=== PATIENT | female | born 1990 | race Hispanic/Latino ===

== ENCOUNTER 2016-07-23 17:48 | Emergency (ER) | payer SELFPAY ==
[2016-07-23] MEDS ORDERED: Ibuprofen 800 MG TAB ONE (18:30)
== END 2016-07-23 18:45 | disposition home or self-care (01) ==
LOC: NAV ERS 17:48
DX: M54.5 Low back pain (principal)
CPT/HCPCS: 99283

== ENCOUNTER 2016-11-30 17:39 | Emergency (ER) | payer SELFPAY | END 2016-11-30 18:03 | disposition home or self-care (01) | LOC: NAV ERS 17:39 | DX: J45.20 Mild intermittent asthma, uncomplicated (principal) | CPT/HCPCS: 99284 ==

== ENCOUNTER 2016-12-24 14:54 | Outpatient (CLI) | payer OTHER ==
[2016-12-15 09:32] LABS: BHCG - Serum POSITIVE (NEGATIVE); Pregs Control Bar Appear? YES (CONTROL BAR)
== END 2016-12-24 14:55 | disposition home or self-care (01) ==
LOC: NAV LAB 14:54 → EDSTATUS 14:55 → NAV LAB 14:55
DX: Z00.00 Encounter for general adult medical examination without abnormal findings (principal)
CPT/HCPCS: 36415; 84703

== ENCOUNTER 2016-12-27 15:44 | Emergency (ER) | payer SELFPAY ==
[2016-12-27 17:33] LABS: #Basophils 0.1 thou/uL (0.0-0.2); #Eosinphils 0.3 thou/uL (0.0-0.7); #Lymphocytes 3.5 thou/uL (1.20-3.40); #Monocytes 0.9 thou/uL (0.11-0.59); #Neutrophils 11.9 thou/uL (1.40-6.50); %Basophils 0.5 % (0.0-1.0); %Eosinophils 1.9 % (0.0-10.0); %Monocytes 5.5 % (0.0-10.0); %Neutrophils 71.1 % (42.0-75.0); Hemoglobin 11.3 g/dL (12.0-16.0); Mean Corpuscular HGB CONC 31.7 g/dL (32.0-36.0); Mean Corpuscular Hemoglobin 27.8 pg (27.0-31.0); Mean Corpuscular Volume 87.6 fl (81.0-99.0); Platelet Count 270 thou/uL (130-400); RBC Distribution Width 12.3 % (11.5-14.5); Red Blood Cell (RBC) Count 4.06 mill/uL (4.20-5.40); White Blood Cell (WBC) Count 16.7 thou/uL (4.8-10.8)
[2016-12-27 17:54] LABS: ALT (SGPT) 17 U/L (8-55); AST (SGOT) 12 U/L (5-34); Albumin 3.6 g/dL (3.5-5.0); Alkaline Phosphatase 61 U/L (40-150); Anion Gap 10 mmol/L (10-20); BUN (Urea Nitrogen) 9 mg/dL (7.0-18.7); Bilirubin, Total 0.5 mg/dL (0.2-1.2); Calc. Creatinine Clearance 0 mL/min (70-130); Calcium 8.6 mg/dL (7.8-10.44); Carbon Dioxide 27 mmol/L (22-29); Chloride 105 mmol/L (98-107); Estimated GFR-MDRD Greater than 90; Globulin 3.1 g/dL (2.4-3.5); Glucose 98 mg/dL (70-105); Potassium 4.1 mmol/L (3.5-5.1); Protein, Total 6.7 g/dL (6.0-8.3); Sodium 138 mmol/L (136-145)
[2016-12-27 18:28] LABS: Pregnancy Test - Urine (BHCG) POSITIVE (NEGATIVE); Pregu Control Background? CLEAR/WHITE (CLR/WHITE); Pregu Control Bar Appear? YES (CONTROL BAR)
[2016-12-27 18:29] LABS: Bilirubin Negative (Negative); Blood, Urine Moderate (Negative); Clarity Clear (Clear); Glucose, Urine (Dipstick) Negative (Negative); Leukocyte Large (Negative); Nitrite Negative (Negative); Protein, Urine (Dipstick) 30 mg/dL (Neg-Trace); Urobilinogen 0.2 mg/dL (0.2-1.0); pH, Urine 7.5 (5.0-9.0)
[2016-12-27 18:34] LABS: Bacteria/HPF 1+ HPF (None Seen); RBC/HPF 0-3 HPF (0-3)
[2016-12-27] MEDS ORDERED: Ketorolac Tromethamine 30 MG/ML VIAL ONE (19:09)
[2016-12-27] MEDS ORDERED: Cipro 250 MG TAB ONE (19:09)
--- NOTE | 2016-12-27 21:11 | ULT ---
PELVIC ULTRASOUND WINSTON SCALE DOPPLER COLOR FLOW IMAGING WITH SPECTRAL ANALYSIS PERFORMED TRANSABDOMINAL AND TRANSVAGINAL PELVIC ULTRASOUND 12/27/16 INDICATION: Abdominal and pelvic pain. Recent vaginal bleeding. Reported spontaneous , December 19, 2016. 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 This is not definitively characterized on this e xam as there are persistent areas of artifact as well as incomplete evaluation at the cephalad aspec t of the uterus. Doppler assessment performed which reveals flow to each ovary. The endometrial stri pe is 8 mm in thickness. No evidence of an intrauterine gestation demonstrated. No significant free pelvic fluid. IMPRESSION: 1. Mild prominence of endometrium. No definitive evidence for intrauterine gestation. Correlate clinically as component of retained products of conception not excluded. This should be further ass essed with serial beta HCG values as well as imaging followup. 2. Patient reports uterine didelphys. This is not reliably characterized on the basis of this e xam. When clinically feasible, this could be further evaluated with dedicated MRI of pelvis. RENAL ULTRASOUND: CLINICAL HISTORY: Abdomen pain. Patient's ordering physician requests renal ultrasound. FINDINGS: Right kidney demonstrates the length of approximately 11 cm and the left kidney approximately 12.5 c m. There is no overt hydronephrosis of either kidney. Urinary bladder is not reliably assessed on th is exam. IMPRESSION: No overt hydronephrosis involving either kidney. Code T POS: ROSI
== END 2016-12-27 19:37 | disposition home or self-care (01) ==
LOC: NAV ERS 15:44
DX: N39.0 Urinary tract infection, site not specified (principal)
CPT/HCPCS: 36415; 76856; 80053; 81003; 81015; 81025; 84702; 85025; 87086; 96374; J1885

== ENCOUNTER 2018-02-28 17:24 | Emergency (ER) | payer SELFPAY | END 2018-02-28 19:13 | disposition home or self-care (01) | LOC: NAV ERS 17:24 | DX: J32.9 Chronic sinusitis, unspecified (principal); B97.89 Other viral agents as the cause of diseases classified elsewhere; R09.82 Postnasal drip | CPT/HCPCS: 87081; 87430; 87804; 99283 ==

== ENCOUNTER 2019-11-06 08:47 | Emergency (ER) | payer OTHER ==
[2019-11-07 11:37] LABS: SARS-CoV-2 MS2 Positive; SARS-CoV-2 N Gene Negative; SARS-CoV-2 S Gene Negative; SARS-CoV-2 orf1ab Negative
== END 2019-11-06 09:40 | disposition home or self-care (01) ==
LOC: NAV ERS 08:47
DX: J02.9 Acute pharyngitis, unspecified (principal); Z20.828 Contact with and (suspected) exposure to other viral communicable diseases
CPT/HCPCS: 87081; 87430; 87635; 99283; U0003

== ENCOUNTER 2020-06-04 08:52 | Emergency (ER) | payer OTHER ==
[2020-06-05 06:13] LABS: SARS-CoV-2 PCR by NAA DETECTED (NotDetected)
== END 2020-06-04 09:53 | disposition home or self-care (01) ==
LOC: NAV ERS 08:52
DX: U07.1 COVID-19 (principal)
CPT/HCPCS: 87635; 99284; U0003; U0005

== ENCOUNTER 2022-07-24 06:13 | Emergency (ER) | payer OTHER ==
[2022-07-24] MEDS ORDERED: Ibuprofen 800 MG TAB ONE (07:24)
== END 2022-07-24 07:48 | disposition home or self-care (01) ==
LOC: NAV ERS 06:13
DX: J02.9 Acute pharyngitis, unspecified (principal); J45.909 Unspecified asthma, uncomplicated; Z79.899 Other long term (current) drug therapy
CPT/HCPCS: 87081; 87430; 99283